=== PATIENT | female | born 2000 | race Caucasian/White ===

== ENCOUNTER 2019-03-05 23:48 | Emergency (ER) | payer BC, OTHER ==
[2019-03-05 23:57] VITALS: TEMP 97.8
--- NOTE | 2019-03-06 00:14 | ED ---
General Adult HPI - General Chief complaint: Abdominal Pain Stated complaint: Abdominal Pain/Vomiting Time Seen by Provider: 03/06/19 00:02 Source: patient Mode of arrival: ambulatory - History of Present Illness Initial comments: This patient is a 18-year-old woman who presents to be evaluated for upper abdominal pain. Had started going on afternoon, worse tonight. She indicates the epigastric area. The pain is aching. She also has had some accompanying nausea and vomiting as well as a couple of soft bowel movements. Patient has not noted any blood or tarry stools. No blood or coffee-ground emesis. -: hour(s) Location: abdomen Radiation: non-radiation Quality: burning, aching Consistency: constant Improves with: none Worsens with: none Associated Symptoms: nausea/vomiting Treatments Prior to Arrival: none - Related Data Allergies Allergy/AdvReac Type Severity Reaction Status Date / Time No Known Allergies Allergy Verified 03/06/19 01:39 Review of Systems ROS Statement: Those systems with pertinent positive or pertinent negative responses have been documented in the HPI. ROS Other: All systems not noted in ROS Statement are negative. Constitutional: Denies: fever, chills Respiratory: Reports: dyspnea. Denies: cough, wheezes Cardiovascular: Denies: chest pain, palpitations, edema, syncope Gastrointestinal: Reports: abdominal pain, nausea, vomiting, diarrhea. Denies: hematemesis, melena, hematochezia Genitourinary: Denies: dysuria Musculoskeletal: Denies: back pain Skin: Denies: rash Neurological: Denies: headache, weakness, numbness Past Medical History Past Medical History: GERD/Reflux History of Any Multi-Drug Resistant Organisms: None Reported Past Surgical History: Tonsillectomy Past Psychological History: No Psychological Hx Reported Smoking Status: Never smoker Past Alcohol Use History: None Reported Past Drug Use History: None Reported General Exam General appearance: alert, in no apparent distress Head exam: Present: atraumatic, normocephalic Eye exam: Present: normal appearance. Absent: scleral icterus, conjunctival injection ENT exam: Present: normal oropharynx Neck exam: Present: normal inspection Respiratory exam: Present: normal lung sounds bilaterally. Absent: respiratory distress, wheezes, rales, rhonchi, stridor Cardiovascular Exam: Present: normal rhythm, tachycardia (Rate is 108 at my exam), normal heart sounds. Absent: systolic murmur, diastolic murmur, rubs, gallop GI/Abdominal exam: Present: soft, tenderness (Mild epigastric tenderness without rebound or guarding), normal bowel sounds. Absent: distended, guarding, rebound, rigid, mass Extremities exam: Present: normal inspection, normal capillary refill. Absent: pedal edema, calf tenderness Back exam: Present: normal inspection. Absent: CVA tenderness (R), CVA tenderness (L) Neurological exam: Present: alert, oriented X3. Absent: CN II-XII intact Skin exam: Present: warm, dry, intact, normal color. Absent: rash Course Vital Signs 03/05/19 03/06/19 03/06/19 23:53 00:22 00:23 Temperature 97.8 F Pulse Rate 130 H Pulse Rate [ 120 H [employer] ] Respiratory 20 25 H Rate Blood Pressure 105/71 O2 Sat by Pulse 96 Oximetry EKG Findings - EKG Results: EKG: interpreted by ERMD, sinus rhythm, normal axis, normal QRS, normal ST/T EKG shows: tachycardia (Rate 114 bpm) Medical Decision Making - Lab Data Result diagrams: 03/06/19 01:32 03/06/19 00:28 Lab Results 03/06/19 03/06/19 03/06/19 Range/Units 00:28 00:28 01:32 WBC 7.3 (4.0-11.0) k/uL RBC 5.00 (3.80-5.40) m/uL Hgb 14.4 (11.4-16.0) gm/dL Hct 43.3 (34.0-46.0) % MCV 86.5 (80.0-100.0) fL MCH 28.9 (25.0-35.0) pg MCHC 33.4 (31.0-37.0) g/dL RDW 13.6 (11.5-15.5) % Plt Count 155 (150-450) k/uL Neutrophils % 86 % Lymphocytes % 5 % Monocytes % 6 % Eosinophils % 1 % Basophils % 0 % Neutrophils # 6.3 (1.3-7.7) k/uL Lymphocytes # 0.4 L (1.0-4.8) k/uL Monocytes # 0.5 (0-1.0) k/uL Eosinophils # 0.1 (0-0.7) k/uL Basophils # 0.0 (0-0.2) k/uL Sodium 138 (137-145) mmol/L Potassium 3.9 (3.5-5.1) mmol/L Chloride 104 (98-107) mmol/L Carbon Dioxide 19 L (22-30) mmol/L Anion Gap 15 mmol/L BUN 18 H (7-17) mg/dL Creatinine 0.73 (0.52-1.04) mg/dL Est GFR (CKD-EPI)AfAm >90 (>60 ml/min/1.73 sqM) Est GFR (CKD-EPI)NonAf >90 (>60 ml/min/1.73 sqM) Glucose 92 (74-99) mg/dL Calcium 9.7 (8.4-10.2) mg/dL Total Bilirubin 1.0 (0.2-1.3) mg/dL AST 42 H (14-36) U/L ALT 27 (9-52) U/L Alkaline Phosphatase 47 (38-126) U/L Total Protein 8.0 (6.3-8.2) g/dL Albumin 4.6 (3.5-5.0) g/dL Amylase 91 (30-110) U/L Lipase 101 (23-300) U/L Urine Color Urine Appearance (Clear) Urine pH (5.0-8.0) Ur Specific [place] (1.001-1.035) Urine Protein (Negative) Urine Glucose (UA) (Negative) Urine Ketones (Negative) Urine Blood (Negative) Urine Nitrite (Negative) Urine Bilirubin (Negative) Urine Urobilinogen (<2.0) mg/dL Ur Leukocyte Esterase (Negative) Urine RBC (0-5) /hpf Urine WBC (0-5) /hpf Ur Squamous Epith Cells (0-4) /hpf Urine Mucus (None) /hpf Urine HCG, Qual (Not Detectd) 03/06/19 03/06/19 Range/Units Unknown Unknown WBC (4.0-11.0) k/uL RBC (3.80-5.40) m/uL Hgb (11.4-16.0) gm/dL Hct (34.0-46.0) % MCV (80.0-100.0) fL MCH (25.0-35.0) pg MCHC (31.0-37.0) g/dL RDW (11.5-15.5) % Plt Count (150-450) k/uL Neutrophils % % Lymphocytes % % Monocytes % % Eosinophils % % Basophils % % Neutrophils # (1.3-7.7) k/uL Lymphocytes # (1.0-4.8) k/uL Monocytes # (0-1.0) k/uL Eosinophils # (0-0.7) k/uL Basophils # (0-0.2) k/uL Sodium (137-145) mmol/L Potassium (3.5-5.1) mmol/L Chloride (98-107) mmol/L Carbon Dioxide (22-30) mmol/L Anion Gap mmol/L BUN (7-17) mg/dL Creatinine (0.52-1.04) mg/dL Est GFR (CKD-EPI)AfAm (>60 ml/min/1.73 sqM) Est GFR (CKD-EPI)NonAf (>60 ml/min/1.73 sqM) Glucose (74-99) mg/dL Calcium (8.4-10.2) mg/dL Total Bilirubin (0.2-1.3) mg/dL AST (14-36) U/L ALT (9-52) U/L Alkaline Phosphatase (38-126) U/L Total Protein (6.3-8.2) g/dL Albumin (3.5-5.0) g/dL Amylase (30-110) U/L Lipase (23-300) U/L Urine Color Yellow Urine Appearance Clear (Clear) Urine pH 8.5 H (5.0-8.0) Ur Specific [place] 1.018 (1.001-1.035) Urine Protein 2+ H (Negative) Urine Glucose (UA) Negative (Negative) Urine Ketones 3+ H (Negative) Urine Blood Negative (Negative) Urine Nitrite Negative (Negative) Urine Bilirubin Negative (Negative) Urine Urobilinogen <2.0 (<2.0) mg/dL Ur Leukocyte Esterase Negative (Negative) Urine RBC 1 (0-5) /hpf Urine WBC 10 H (0-5) /hpf Ur Squamous Epith Cells <1 (0-4) /hpf Urine Mucus Rare H (None) /hpf Urine HCG, Qual Not Detected (Not Detectd) Disposition Clinical Impression: Abdominal pain, Vomiting Disposition: HOME SELF-CARE Condition: Fair Instructions (If sedation given, give patient instructions): Abdominal Pain (ED) Is patient prescribed a controlled substance at d/c from ED?: No Referrals: Chilo Jain MD [Primary Care Provider] - 1-2 days
[2019-03-06] MEDS ORDERED: PROMETHAZINE INJ 25 MG in SODIUM CHLORIDE 0.9% 50 ML IVPB STA (00:24)
[2019-03-06] MEDS ORDERED: SODIUM CHLORIDE 0.9% 500 ML 500 ML IV STA (00:24)
[2019-03-06 00:45] LABS: ALT 27 U/L (9-52); AST 42 U/L (14-36); African American GFR (CKD) >90 (>60 ml/min/1.73 sqM); Albumin 4.6 g/dL (3.5-5.0); Alkaline Phosphatase 47 U/L (38-126); Amylase 91 U/L (30-110); Anion Gap 15 mmol/L; Blood Urea Nitrogen 18 mg/dL (7-17); Calcium 9.7 mg/dL (8.4-10.2); Carbon Dioxide 19 mmol/L (22-30); Chloride 104 mmol/L (98-107); Glucose 92 mg/dL (74-99); Non-African American GFR(CKD) >90 (>60 ml/min/1.73 sqM); Sodium 138 mmol/L (137-145)
[2019-03-06 00:53] LABS: Potassium 3.9 mmol/L (3.5-5.1)
[2019-03-06 01:40] LABS: Basophils % (A) 0 %; Eosinophils # (A) 0.1 k/uL (0-0.7); Eosinophils % (A) 1 %; HCT 43.3 % (34.0-46.0); HGB 14.4 gm/dL (11.4-16.0); Lymphocytes # (A) 0.4 k/uL (1.0-4.8); Lymphocytes % (A) 5 %; MCH 28.9 pg (25.0-35.0); MCHC 33.4 g/dL (31.0-37.0); MCV 86.5 fL (80.0-100.0); Mean Platelet Volume 7.9; Monocytes # (A) 0.5 k/uL (0-1.0); Monocytes % (A) 6 %; Neutrophils # (A) 6.3 k/uL (1.3-7.7); Neutrophils % (A) 86 %; Platelet Count 155 k/uL (150-450); RDW 13.6 % (11.5-15.5); WBC 7.3 k/uL (4.0-11.0)
[2019-03-06 02:17] LABS: Appearance,Urine Clear (Clear); Bilirubin,Urine Negative (Negative); Blood,Urine Negative (Negative); Color,Urine Yellow; Glucose,Urine (UA) Negative (Negative); Ketones,Urine 3+ (Negative); Leukocyte Esterase,Urine Negative (Negative); Mucus,Urine Rare /hpf; Nitrite,Urine Negative (Negative); PH, Urine 8.5 (5.0-8.0); Protein,Urine 2+ (Negative); RBC,Urine 1 /hpf (0-5); Specific Gravity,Urine 1.018 (1.001-1.035); Squamous Epithelial Cell,Urine <1 /hpf (0-4); Urobilinogen,Urine <2.0 mg/dL (<2.0); WBC,Urine 10 /hpf (0-5)
--- NOTE | 2019-03-06 02:54 | XR ---
EXAM: XR Abdomen, frontal Views With XR Chest CLINICAL HISTORY: Pain TECHNIQUE: Frontal view of the chest, frontal view of the abdomen/pelvis . 4 images received COMPARISON: No relevant prior studies available. FINDINGS: Lungs: Lungs are clear. Normal cardiomediastinal contour. Pleural space: Unremarkable. No pneumothorax. Heart: See above. Mediastinum: See above. Intraperitoneal space: No free air. Gastrointestinal tract: Nonspecific bowel gas pattern. No dilation. Bones/joints: Unremarkable. IMPRESSION: Nonspecific bowel gas pattern.
[2019-03-06 03:32] VITALS: BP 121/71; PULSE 77; RESP 18
== END 2019-03-06 03:32 | disposition home or self-care (01) ==
LOC: EC 23:48
DX: R10.13 Epigastric pain (principal); R11.2 Nausea with vomiting, unspecified; R00.0 Tachycardia, unspecified; Z87.19 Personal history of other diseases of the digestive system
CPT/HCPCS: 36415; 93005; 80053; 82150; 83690; 85025; 81001; 81025; 74022; 99284; 96374; 96361 ×3; J2550

== ENCOUNTER → 2020-10-11 | Outpatient (CLI) | payer BC, OTHER ==
--- NOTE | 2020-10-11 09:15 | US ---
EXAMINATION TYPE: US gallbladder DATE OF EXAM: 10/11/2020 COMPARISON: NONE CLINICAL HISTORY: 19-year-old female K81.1 Chronic cholecystitis. Pain. TECHNIQUE: Multiple sonographic images of the right upper quadrant are obtained. FINDINGS: EXAM MEASUREMENTS: Liver Length: 13 cm Gallbladder Wall: .9 cm CBD: .4 cm Right Kidney: 10.9 x 2.8 x 4.6 cm Pancreas: wnl Liver: wnl Gallbladder: No stones seen Evidence for sonographic Lipscomb's sign: No CBD: wnl Right Kidney: No hydronephrosis. IMPRESSION: Unremarkable sonographic examination of the right upper quadrant.
== END | disposition home or self-care (01) ==
LOC: RADUSWWP 08:16
PROVIDERS: ATTEND Surgery Plastic and Reconstructive Surgery
DX: K81.1 Chronic cholecystitis (principal)
CPT/HCPCS: 76705

== ENCOUNTER → 2020-10-12 | Outpatient (CLI) | payer BC, OTHER ==
--- NOTE | 2020-10-12 10:04 | NM ---
EXAMINATION TYPE: NM hepatobiliary w EF DATE OF EXAM: 10/12/2020 COMPARISON: Ultrasound gallbladder 10/11/2020 HISTORY: Chronic cholecystitis TECHNIQUE: After the intravenous administration of 4.8 mCi Tc 99m Mebrofenin hepatobiliary scintigrap hy is performed. Immediate images post injection. FINDINGS: There is satisfactory initial accumulation of tracer by the liver. The gallbladder is visualized wit hin 4 minutes. The small bowel activity is noted within 30 minutes. At one hour 8 ounces of oral en sure plus is given to mimic CCK and gallbladder ejection fraction is calculated at 44 %, in the veronika l range. Therefore there is no scintigraphic evidence of cystic or common bile duct obstruction to s uggest acute cholecystitis or gallbladder dyskinesia. IMPRESSION: Exam is within normal limits.
== END ==
LOC: RADNMMAIN 06:54
PROVIDERS: ATTEND Surgery Plastic and Reconstructive Surgery
DX: K81.1 Chronic cholecystitis (principal)
CPT/HCPCS: 78226; A9537

== ENCOUNTER 2020-10-13 06:49 | Day surgery (SDC) | payer BC, OTHER ==
[2020-10-08 10:59] VITALS: BMI 25.6
--- NOTE | 2020-10-13 04:07 | P.GSHP ---
History of Present Illness H&P Date: 10/13/20 CHIEF COMPLAINT: GERD HISTORY OF PRESENT ILLNESS: The patient is a 19-year-old female who presents reports gastroesophageal reflux disease. Upper endoscopy was offered for further evaluation and management. PAST MEDICAL HISTORY: Please see list. PAST SURGICAL HISTORY: Please see list. MEDICATIONS: Please see list. ALLERGIES: Please see list. SOCIAL HISTORY: No illicit drug use FAMILY HISTORY: No reports of Crohn disease or ulcerative colitis. REVIEW OF ORGAN SYSTEMS: CONSTITUTIONAL: No reports of fevers or chills. GI: Denies any blood in stools or constipation. PHYSICAL EXAM: VITAL SIGNS: Stable GENERAL: Well-developed and pleasant in no acute distress. HEENT: No scleral icterus. Extraocular movements grossly intact. Moist buccal mucosa. NECK: Supple without lymphadenopathy. CHEST: Unlabored respirations. Equal bilateral excursions. CARDIOVASCULAR: Regular rate and rhythm. Distal 2+ pulses. ABDOMEN: Soft, nondistended. MUSCULOSKELETAL: No clubbing, cyanosis, or edema. ASSESSMENT: 1. Gastroesophageal reflux disease PLAN: 1. Recommend proceeding with an upper endoscopy Past Medical History Past Medical History: GERD/Reflux History of Any Multi-Drug Resistant Organisms: None Reported Past Surgical History: Tonsillectomy Additional Past Surgical History / Comment(s): WISDOM TEETH REMOVED UNDER ANESTHESIA Past Anesthesia/Blood Transfusion Reactions: No Reported Reaction Smoking Status: Never smoker - Past Family History Mother Family Medical History: No Reported History Medications and Allergies Home Medications Medication Instructions Recorded Confirmed Type Norgestimate-Ethinyl Estradiol 1 tab PO DAILY 10/08/20 10/08/20 History [Sprintec 28 Day Tablet] Omeprazole 40 mg PO DAILY 10/08/20 10/08/20 History Allergies Allergy/AdvReac Type Severity Reaction Status Date / Time No Known Allergies Allergy Verified 10/08/20 10:52
[~2020-10-13 06:49] MED LIST: LACTATED RINGERS 1,000 ML IV SCH; LIDOCAINE 1% (10MG/ML) FOR IV START INTRADERMA PRN
[2020-10-13 07:30] VITALS: TEMP 98
[2020-10-13] MEDS ORDERED: LIDOCAINE 1% INJ 10MG/ML (20 ML MDV) ONE (07:31)
[2020-10-13] MEDS ORDERED: PROPOFOL 10 MG/ML 20 ML VIAL IV ONE (07:31)
--- NOTE | 2020-10-13 07:45 | P.PCN ---
Date of Procedure: 10/13/20 Description of Procedure: PREOPERATIVE DIAGNOSIS: Gastroesophageal reflux disease. POSTOPERATIVE DIAGNOSIS: Gastritis. Gastroesophageal reflux disease. OPERATION: Esophagogastroduodenoscopy with biopsies along antrum. SURGEON: Nichole Edmondson MD ANESTHESIA: MAC. INDICATIONS: The patient is a 19-year-old female who presents with a history of reflux disease. Benefits and risks of the procedure were described. Informed consent was obtained. DESCRIPTION: The patient was brought into the endoscopy suite and laid in the left lateral decubitus position. An Olympus gastroscope was passed along the posterior oropharynx down to the distal esophagus where the squamocolumnar junction was encountered at 37 cm from the incisors. The stomach was entered and no bile reflux was found. Additional findings are listed below. Biopsies with cold forceps were obtained of the antrum. The first through third portion of the duodenum was examined and unremarkable. Retroflexion of the scope confirmed Hill grade 2 lower esophageal valve. The squamocolumnar junction demonstrated LA grade B erosive esophagitis. The stomach was desufflated. The patient tolerated the procedure well. FINDINGS: Squamocolumnar junction 37 cm from the incisors. Diaphragmatic hiatus at 37 cm. Hill grade 2 lower esophageal valve. LA grade B erosive esophagitis. No active duodenitis. Chronic gastritis RECOMMENDATIONS: Recommend manometry with impedance May benefit from Scott fundoplasty for gastroesophageal reflux disease Upper endoscopy as needed. Plan - Discharge Summary Discharge Rx Participant: No New Discharge Prescriptions: Continue Norgestimate-Ethinyl Estradiol [Sprintec 28 Day Tablet] 1 tab PO DAILY Omeprazole 40 mg PO DAILY Discharge Medication List Norgestimate-Ethinyl Estradiol [Sprintec 28 Day Tablet] 1 tab PO DAILY 10/08/20 [History] Omeprazole 40 mg PO DAILY 10/08/20 [History] Follow up Appointment(s)/Referral(s): Nichole Edmondson MD [STAFF PHYSICIAN] - 10/19/20 Patient Instructions/Handouts: *Surgery [facility] - (Anesthesia) Endoscopy Discharge Instructions, Gastroesophageal Reflux Disease (DC) Discharge Disposition: HOME SELF-CARE
[2020-10-13 07:52] VITALS: RESP 16
[2020-10-13 08:10] VITALS: BP 108/73; PULSE 63
== END 2020-10-13 08:27 | disposition home or self-care (01) ==
LOC: ORWHC2ENDO 06:49
PROVIDERS: ATTEND Surgery Plastic and Reconstructive Surgery
DX: K21.00 Gastro-esophageal reflux disease with esophagitis, without bleeding (principal); K22.10 Ulcer of esophagus without bleeding; K29.50 Unspecified chronic gastritis without bleeding; Z90.89 Acquired absence of other organs; Z98.890 Other specified postprocedural states; Z79.890 Hormone replacement therapy; Z79.899 Other long term (current) drug therapy
CPT/HCPCS: 81025; 88305; 43239; J2001; J2704

== ENCOUNTER → 2021-06-16 | Outpatient (CLI) | payer BC, OTHER ==
--- NOTE | 2021-06-16 12:28 | USB ---
Reason for exam: clinical finding. Indicated problem(s): palpable abnormality in the left breast. Physical Findings: Nurse Summary: 1cm movable nodule (nurse dw). US Breast LT Technologist: Chelita Varela Left complete breast ultrasound includes all four quadrants, the retroareolar region and axilla. Finding demonstrates a 0.8 x 0.7 x 0.6cm circular, mixed lesion at 12 o'clock. These results were verbally communicated with the patient and result sheet given to the patient on 06/16/21. ASSESSMENT: Suspicious, BI-RAD 4 RECOMMENDATION: Aspiration and ultrasound core biopsy of the left breast. Called Dr. Bautista's office with mammographic findings. Biopsy scheduled for 07/07/21 at 9:30. PRELIMINARY REPORT CALLED AND FAXED TO DR. BAUTISTA ON 06/16/21.
== END | disposition home or self-care (01) ==
LOC: RADUSWWP 09:00
PROVIDERS: ATTEND Family Medicine
DX: N64.59 Other signs and symptoms in breast (principal)

== ENCOUNTER → 2021-07-07 | Day surgery (SDC) | payer BC, OTHER ==
[2021-07-07 09:56] VITALS: RESP 16; TEMP 98.3
--- NOTE | 2021-07-07 11:22 | USB ---
EXAMINATION TYPE: US breast aspiration single LT DATE OF EXAM: 07/07/2021 COMPARISON: NONE CLINICAL HISTORY: N63. lump/mass. Informed consent was obtained and all the patient's questions were answered. The lesion at the left 12:00 position was localized sonographically. The standard sterile technique was utilized as well as appropriate local anesthesia with 1% lidocaine. An 18-gauge needle was introduced into the lesion in question and a tiny amount of thick whitish aspirate was obtained and sent to cytology for further evaluation. Microclip marker was deployed. Following appropriate hemostasis the patient left the department in stable condition. IMPRESSION: Successful cyst aspiration left breast 12:00 position with cytology results pending. Pathology Results: Benign LEFT BREAST ASPIRATE: Limited and non-diagnostic hypocellular specimen with few inflammatory cells, peripheral blood, and debris fragments. See note. Recommendation Follow up ultrasound of the left breast in 6 months. BEBE
[2021-07-07 11:27] VITALS: BP 104/71; PULSE 66
== END ==
LOC: RADUSWWP 09:33
PROVIDERS: ATTEND Family Medicine
DX: N63.25 Unspecified lump in the left breast, overlapping quadrants (principal)
CPT/HCPCS: 88305; 88173; 76942; 19000; A4648; J2001

== ENCOUNTER → 2022-01-20 | Outpatient (CLI) | payer BC, OTHER ==
--- NOTE | 2022-01-20 07:32 | USB ---
Reason for Exam: Follow-up at short interval from prior study. Patient History: 07/07/2021, Benign Cyst Aspiration on the left side. Technique: Method: Targeted. Findings: The upper outer quadrant of the left breast, the axilla of the left breast and the retroareolar of the left breast were scanned. Finding 1: Complicated cysts. Laterality: Left. Size 8 x 6 x 8 mm. 12 O'clock Quadrant: Upper outer. 1 cm cm from nipple. .. Overall Assessment: Probably benign, BI-RAD 3 Management: Diagnostic Breast Ultrasound of the left breast in 6 months. A clinical breast exam by your physician is recommended on an annual basis and results should be correlated with mammographic findings. Electronically signed and approved by: Oren Ivory M.D. Radiologis
== END | disposition home or self-care (01) ==
LOC: RADUSWWP 06:54
PROVIDERS: ATTEND Family Medicine
DX: N60.02 Solitary cyst of left breast (principal)

== ENCOUNTER → 2022-08-24 | Outpatient (CLI) | payer BC ==
--- NOTE | 2022-08-24 16:19 | US ---
EXAMINATION TYPE: US pelvic complete DATE OF EXAM: 08/24/2022 COMPARISON: NONE CLINICAL HISTORY: R10.2 pel/trupti pain. Pain TECHNIQUE: Transabdominal (TA). Transabdominal sonographic images of the pelvis were acquired. EXAM MEASUREMENTS: Uterus: 5.2 x 3.0 x 5.2 cm Endometrial Stripe: .5 cm Right Ovary: 3.5 x 1.6 x 1.6 cm Left Ovary: 2.8 x 1.5 x 1.7 cm 1. Uterus: Anteverted wnl 2. Endometrium: wnl 3. Right Ovary: wnl 4. Left Ovary: wnl 5. Bilateral Adnexa: wnl 6. Posterior cul-de-sac: wnl Urinary bladder is present. The posterior wall is normal. Follicles are on the ovaries. IMPRESSION: 1. Normal pelvic ultrasound
--- NOTE | 2022-08-24 16:19 | US ---
EXAMINATION TYPE: US thyroid st tissue head/neck DATE OF EXAM: 08/24/2022 COMPARISON: EXAMINATION TYPE: US thyroid st tissue head/neck DATE OF EXAM: 08/24/2022 COMPARISON: NONE CLINICAL HISTORY: R22.0 swelling/mass/lump head. Lump left chin on jaw line. TECHNIQUE: Real-time linear array sonography of the palpable abnormality. FINDINGS: Hypoechoic area seen mobile 1.3 x .6 x 1.5 cm. IMPRESSION: 1. Isoechoic structure within the subcutaneous tissues may be a small lymph node at the level of the palpable abnormality in clinical management follow-up form.
== END | disposition home or self-care (01) ==
LOC: RADUSWWP 13:35
PROVIDERS: ATTEND Family Medicine
DX: R10.2 Pelvic and perineal pain (principal); R22.1 Localized swelling, mass and lump, neck
CPT/HCPCS: 76536; 76856

== ENCOUNTER → 2023-08-08 | Outpatient (CLI) | payer BC ==
--- NOTE | 2023-08-10 09:24 | MR ---
EXAMINATION TYPE: MR neck wo con DATE OF EXAM: 08/08/2023 10:29 PM CLINICAL INDICATION:Female, 22 years old with history of R22.1; PHH, Left side of jaw mass, larger wh en sick. Marker placed COMPARISON: Ultrasound 08/24/2022. TECHNIQUE: Multi planar, multi sequence imaging was performed of the neck soft tissues. MR contrast: IV Contrast: no contrast was utilized, palpable marker placed along the left chin. FINDINGS: There is lower T1 signal area within the area of palpable abnormality correlates with ultr asound. This does not have a well-circumscribed mass appearance finding has curvilinear possible vess el seen on prior with at least 2 small areas of signal abnormality measuring 4 and 3 mm on coronal im aging 4 1 image 13. The glottis appears unremarkable. Several nonenlarged anterior chain lymph nodes are identified. The cervical vertebral bodies have preserved heights and alignment. The cervical spinal cord demonstr ates a normal appearance. The paranasal sinuses and visualized portions of the brain, orbits, globes all appear within normal limits. The salivary glands are within normal limits. No lymphadenopathy vis ualized. IMPRESSION: Irregular shaped soft tissue lesion within the area of palpable abnormality which correlates with ul trasound imaging. Findings again could relate to small lymph node given findings on ultrasound imagin g and increased size and patients sec. Consider surveillance with ultrasound imaging and dermatologic evaluation.
== END | disposition home or self-care (01) ==
LOC: RADMRIMAIN 21:30
PROVIDERS: ATTEND Otolaryngology
DX: M79.89 Other specified soft tissue disorders (principal); R22.1 Localized swelling, mass and lump, neck
CPT/HCPCS: 70540

== ENCOUNTER → 2024-10-23 | Outpatient (CLI) | payer BC ==
--- NOTE | 2024-10-23 15:43 | USB ---
Patient History: 07/07/2021, Benign Cyst Aspiration on the left side. Technique: Method: Targeted. Findings: The axilla of the left breast and the retroareolar of the left breast were scanned. Targeted Ultrasound today shows no worrisome solid or cystic mass or fluid collection. Scanning of the axilla shows no suspicious mass or adenopathy. Overall Assessment: Negative, BI-RAD 1 Management: Screening Mammogram of both breasts at age 39. Return for diagnostic imaging palpable abnormality recurs A clinical breast exam by your physician is recommended on an annual basis and results should be correlated with mammographic findings. This exam should not preclude additional follow-up of suspicious palpable abnormalities. Results were given to the patient verbally at the time of exam. [facility], , 10/23/2024 3:34 PM. Electronically signed and approved by: Erick Wheeler M.D.
== END | disposition home or self-care (01) ==
LOC: RADUSWWP 14:50
PROVIDERS: ATTEND Family Medicine
DX: N63.20 Unspecified lump in the left breast, unspecified quadrant (principal)